=== PATIENT | male | born 2000 | race Caucasian/White ===

== ENCOUNTER → 2023-12-06 09:13 | Outpatient (REF) | payer OTHER, SELFPAY | LOC: RAD 09:13 | PROVIDERS: ATTENDING PHYSICIAN Otolaryngology; FAMILY PHYSICIAN Pediatrics | DX: R13.10 Dysphagia, unspecified (principal) | CPT/HCPCS: 74221 ==

== ENCOUNTER → 2023-12-09 14:33 | Outpatient (REF) | payer OTHER, SELFPAY | LOC: HWRAD 14:33 | PROVIDERS: ATTENDING PHYSICIAN Otolaryngology; FAMILY PHYSICIAN Pediatrics | DX: R22.1 Localized swelling, mass and lump, neck (principal); J98.59 Other diseases of mediastinum, not elsewhere classified | CPT/HCPCS: 70491; 71260; Q9967 ==